=== PATIENT | male | born 1995 | race Caucasian/White ===

== ENCOUNTER 2017-10-28 19:53 | Inpatient (IN) | payer OTHER ==
[~2017-10-28] VITALS: Ht 172.7 cm; Wt 124.5 kg
[2017-10-28 23:30] VITALS: BP 127/58; PULSE 83; RESP 18
[2017-10-28 23:45] VITALS: BP 127/58; RESP 18
[2017-10-29] MEDS ORDERED: ACETAMINOPHEN 325 MG TAB PO PRN
[2017-10-29] MEDS ORDERED: ONDANSETRON 4 MG INJ IV PRN
[2017-10-29] MEDS: SOD CHLORIDE 0.9% 1,000 ML IV SCH ×4 (00:20→19:47)
[2017-10-29] MEDS: PIPER-TAZO 3.375 GM IV (PMX) 50 ML IVPB SCH ×5 (00:20→23:56)
[2017-10-29] MEDS: morphine 2 MG INJ IV PRN ×7 (00:20→23:56)
[2017-10-29 02:42] VITALS: BP 125/61; RESP 17
[2017-10-29 08:04] VITALS: BP 126/58; RESP 18
[2017-10-29 10:38] LABS: ABNORMAL IP MESSAGE 1; BASOPHILS % 0.2 % (0.0-2.0); EOSINOPHILS % 0.2 % (0.0-7.0); HEMATOCRIT 38.3 % (42.0-52.0); HEMOGLOBIN 12.7 g/dl (14.0-18.0); LYMPHOCYTES # 1.3 10^3/ul (0.8-2.9); LYMPHOCYTES % 7.8 % (15.0-51.0); MEAN CORPUSCULAR HEMOGLOBIN 28.7 pg (29.0-33.0); MEAN CORPUSCULAR HGB CONC 33.2 g/dl (32.0-37.0); MEAN CORPUSCULAR VOLUME 86.5 fl (82.0-101.0); MEAN PLATELET VOLUME 11.9 fl (7.4-10.4); MONOCYTE # 1.7 10^3/ul (0.3-0.9); MONOCYTES % 10.2 % (0.0-11.0); NEUTROPHIL # 13.2 10^3/ul (1.6-7.5); NEUTROPHILS % 80.9 % (39.0-77.0); PLATELET COUNT 210 10^3/UL (140-415); POSITIVE DIFF @See below; RED BLOOD COUNT 4.43 10^6/ul (4.70-6.10); RED CELL DISTRIBUTION WIDTH 12.9 % (11.5-14.5); WHITE BLOOD COUNT 16.4 10^3/ul (4.8-10.8)
[2017-10-29 10:47] LABS: CALCIUM 8.8 mg/dl (8.4-10.2); CREATININE 1.06 mg/dl (0.61-1.24); POTASSIUM 4.3 mmol/L (3.5-5.1)
--- NOTE | 2017-10-29 12:49 | HP ---
Date/Time of Note Date/Time of Note DATE: 10/29/17 TIME: 12:47 Assessment/Plan VTE Prophylaxis VTE Prophylaxis Intervention: other Lines/Catheters IV Catheter Type ([facility] Peripheral IV Urinary Cath still in place: No Assessment/Plan Chief Complaint/Hosp Course 1) urinary tract infection - intravenous fluids - intravenous antibiotics - pain medication - consider KUB vs repeat CT if pain continues Problems: HPI/ROS Admit Date/Time Admit Date/Time Oct 28, 2017 at 22:55 Hx of Present Illness Patient without any medical problems but does have a family history of nephrolithiasis comes in with abdominal pain. Patient was found to have an urinary tract infection and so is transferred here from an outside hospital for further treatment. PMH/Family/Social Past Medical History Medical History: no pertinent history Social History Smoking Status: Never smoker Exam/Review of Systems Vital Signs Vitals Vital Signs Date Time Temp Pulse Resp B/P Pulse Ox O2 Delivery O2 Flow Rate FiO2 10/29/17 08:04 98.6 87 18 126/58 96 10/28/17 23:30 Room Air Intake and Output 10/28/17 10/28/17 10/29/17 15:00 23:00 07:00 Intake Total 50 ml Balance 50 ml Exam Constitutional: well developed Head: atraumatic, normocephalic Respiratory: clear to auscultation Cardiovascular: regular rate and rhythm Gastrointestinal: non-tender, soft Extremities: normal pulses Labs Result Diagram: 10/29/17 1013 10/29/17 1013 Medications Medications Current Medications Sodium Chloride 1,000 ml @ 100 mls/hr Q10H IV Last administered on 10/29/17 11:31; Admin Dose 100 MLS/HR; Start 10/29/17 at 00:00 Piperacillin Sod/ Tazobactam Sod (Zosyn 3.375gm/ 50 ml (Pmx)) 50 ml @ 100 mls/ hr Q6 IVPB Last administered on 10/29/17 11:31; Admin Dose 100 MLS/HR; Start 10/29/17 at 00:00 Ondansetron HCl (Zofran Inj) 4 mg Q6H PRN IV NAUSEA AND/OR VOMITING; Start at 00:00 Acetaminophen (Tylenol Tab) 650 mg Q6H PRN PO PAIN AND OR ELEVATED TEMP; Start 10/29/17 at 00:00 Morphine Sulfate (morphine) 2 mg Q2H PRN IV SEVERE PAIN LEVEL 7-10 Last administered on 10/29/17t 11:45; Admin Dose 2 MG; Start 10/29/17 at 12:00 BLANE WELCH Oct 29, 2017 12:49
[2017-10-29 14:42] VITALS: BP 125/60; RESP 18
[2017-10-29 20:00] VITALS: BP 118/56; RESP 19
[2017-10-30 02:00] VITALS: BP 128/65; RESP 17
[2017-10-30] MEDS: morphine 2 MG INJ IV PRN ×8 (03:05→22:31)
[2017-10-30] MEDS: SOD CHLORIDE 0.9% 1,000 ML IV SCH ×2 (04:16→12:22)
[2017-10-30] MEDS: PIPER-TAZO 3.375 GM IV (PMX) 50 ML IVPB SCH ×3 (05:03→17:13)
[2017-10-30 07:48] VITALS: BP 116/53; RESP 18
[2017-10-30 11:36] LABS: BASOPHILS % 0.4 % (0.0-2.0); EOSINOPHILS # 0.1 10^3/ul (0.0-0.5); EOSINOPHILS % 0.8 % (0.0-7.0); HEMATOCRIT 40.5 % (42.0-52.0); HEMOGLOBIN 13.3 g/dl (14.0-18.0); LYMPHOCYTES # 1.5 10^3/ul (0.8-2.9); LYMPHOCYTES % 14.7 % (15.0-51.0); MEAN CORPUSCULAR HEMOGLOBIN 28.5 pg (29.0-33.0); MEAN CORPUSCULAR HGB CONC 32.8 g/dl (32.0-37.0); MEAN CORPUSCULAR VOLUME 86.7 fl (82.0-101.0); MEAN PLATELET VOLUME 11.4 fl (7.4-10.4); MONOCYTE # 1.3 10^3/ul (0.3-0.9); MONOCYTES % 12.1 % (0.0-11.0); NEUTROPHIL # 7.4 10^3/ul (1.6-7.5); NEUTROPHILS % 71.1 % (39.0-77.0); PLATELET COUNT 260 10^3/UL (140-415); RED BLOOD COUNT 4.67 10^6/ul (4.70-6.10); RED CELL DISTRIBUTION WIDTH 13.2 % (11.5-14.5); WHITE BLOOD COUNT 10.5 10^3/ul (4.8-10.8)
[2017-10-30 11:38] LABS: CALCIUM 9.2 mg/dl (8.4-10.2); CREATININE 0.97 mg/dl (0.61-1.24); POTASSIUM 3.9 mmol/L (3.5-5.1)
--- NOTE | 2017-10-30 12:17 | PN ---
Date/Time of Note Date/Time of Note DATE: 10/30/17 TIME: :17 Assessment/Plan VTE Prophylaxis VTE Prophylaxis Intervention: other Lines/Catheters IV Catheter Type (from Nrsg): Peripheral IV Urinary Cath still in place: No Assessment/Plan Chief Complaint/Hosp Course 1) urinary tract infection - intravenous fluids - intravenous antibiotics - pain medication - consider KUB vs repeat CT if pain continues Problems: Subjective 24 Hr Interval Summary Free Text/Dictation Patient still have abdominal pain but is improved Exam/Review of Systems Vital Signs Vitals Vital Signs Date Time Temp Pulse Resp B/P Pulse Ox O2 Delivery O2 Flow Rate FiO2 10/30/17 07:48 98.3 76 18 116/53 97 10/28/17 23:30 Room Air Intake and Output 10/29/17 10/29/17 10/30/17 15:00 23:00 07:00 Intake Total 1100 ml 2120 ml 2620 ml Output Total 650 ml 2350 ml 1250 ml Balance 450 ml -230 ml 1370 ml Exam Constitutional: well developed Head: atraumatic, normocephalic Neck: supple Cardiovascular: regular rate and rhythm Gastrointestinal: soft Extremities: normal pulses Results Result Diagram: 10/30/17 1053 10/30/17 1053 Results 24 hrs Laboratory Tests Test 10/30/17 10:53 White Blood Count 10.5 # Red Blood Count 4.67 L Hemoglobin 13.3 L Hematocrit 40.5 L Mean Corpuscular Volume 86.7 Mean Corpuscular Hemoglobin 28.5 L Mean Corpuscular Hemoglobin Concent 32.8 Red Cell Distribution Width 13.2 Platelet Count 260 # Mean Platelet Volume 11.4 H Neutrophils % 71.1 Lymphocytes % 14.7 L Monocytes % 12.1 H Eosinophils % 0.8 Basophils % 0.4 Nucleated Red Blood Cells % 0.0 Neutrophils # 7.4 Lymphocytes # 1.5 Monocytes # 1.3 H Eosinophils # 0.1 Basophils # 0.0 Nucleated Red Blood Cells # 0.0 Sodium Level 141 Potassium Level 3.9 Chloride Level 106 Carbon Dioxide Level 25 Anion Gap 14 Blood Urea Nitrogen 5 L Creatinine 0.97 Glucose Level 100 Calcium Level 9.2 Medications Medications Current Medications Sodium Chloride 1,000 ml @ 125 mls/hr Q8H IV Last administered on 10/30/17t 04:16; Admin Dose 125 MLS/HR; Start 10/29/17 at 00:00 Piperacillin Sod/ Tazobactam Sod (Zosyn 3.375gm/ 50 ml (Pmx)) 50 ml @ 100 mls/ hr Q6 IVPB Last administered on 10/30/17 05:03; Admin Dose 100 MLS/HR; Start 10/29/17 at 00:00 Ondansetron HCl (Zofran Inj) 4 mg Q6H PRN IV NAUSEA AND/OR VOMITING; Start at 00:00 Acetaminophen (Tylenol Tab) 650 mg Q6H PRN PO PAIN AND OR ELEVATED TEMP Last administered on 10/29/17 19:55; Admin Dose 650 MG; Start 10/29/17 at 00:00 Morphine Sulfate (morphine) 2 mg Q2H PRN IV SEVERE PAIN LEVEL 7-10 Last administered on 10/30/17 09:38; Admin Dose 2 MG; Start 10/29/17 at 12:00 BLANE WELCH Oct 30, 2017 12:17
[2017-10-30 14:08] VITALS: BP 121/59; RESP 18
--- NOTE | 2017-10-30 15:01 | RADRPT ---
PROCEDURE: XR Abdomen. CLINICAL INDICATION: Abdomen pain. TECHNIQUE: AP supine abdomen x-ray. COMPARISON: None. FINDINGS: The bowel gas pattern is normal. There is no evidence of obstruction. There are no abnormal calcifications overlying the urinary tracts. The osseus structures are unremarkable. IMPRESSION: 1. Unremarkable abdomen radiograph. RPTAT: QQ .Kenji Tracey MD, MD Date Time Electronically viewed and signed by .Kenji Tracey MD, MD on 10/30/2017 15:01 .R/
[2017-10-30 20:00] VITALS: BP 132/65; RESP 20
[2017-10-31] MEDS: SOD CHLORIDE 0.9% 1,000 ML IV SCH ×3 (00:04→18:33)
[2017-10-31 02:00] VITALS: BP 114/56; RESP 20
[2017-10-31] MEDS: morphine 2 MG INJ IV PRN ×2 (03:02→08:01)
[2017-10-31] MEDS: PIPER-TAZO 3.375 GM IV (PMX) 50 ML IVPB SCH ×3 (06:05→12:00)
[2017-10-31 07:45] VITALS: BP 132/60; RESP 16
[2017-10-31] MEDS ORDERED: HYDROmorphONE 1 MG/ML SYG IV PRN (12:00)
--- NOTE | 2017-10-31 13:53 | PN ---
Date/Time of Note Date/Time of Note DATE: 10/31/17 TIME: 13:52 Assessment/Plan VTE Prophylaxis VTE Prophylaxis Intervention: other Lines/Catheters IV Catheter Type (from Nrsg): Peripheral IV Urinary Cath still in place: No Assessment/Plan Chief Complaint/Hosp Course 1) urinary tract infection - intravenous fluids - intravenous antibiotics - pain medication - consider KUB vs repeat CT if pain continues Problems: Subjective 24 Hr Interval Summary Free Text/Dictation Abdominal pain is better Exam/Review of Systems Vital Signs Vitals Vital Signs Date Time Temp Pulse Resp B/P Pulse Ox O2 Delivery O2 Flow Rate FiO2 10/31/17 07:45 98.3 64 16 132/60 97 10/28/17 23:30 Room Air Intake and Output 10/30/17 10/30/17 10/31/17 15:00 23:00 07:00 Intake Total 300 ml 3580 ml 1763 ml Output Total 3100 ml 1350 ml Balance 300 ml 480 ml 413 ml Exam Constitutional: well developed Head: atraumatic, normocephalic Neck: supple Respiratory: clear to auscultation Cardiovascular: regular rate and rhythm Gastrointestinal: non-tender, soft Extremities: normal pulses Results Result Diagram: 10/30/17 1053 10/30/17 1053 Medications Medications Current Medications Sodium Chloride 1,000 ml @ 125 mls/hr Q8H IV Last administered on 10/31/17 10:24; Admin Dose 125 MLS/HR; Start 10/29/17 at 00:00 Piperacillin Sod/ Tazobactam Sod (Zosyn 3.375gm/ 50 ml (Pmx)) 50 ml @ 100 mls/ hr Q6 IVPB Last administered on 10/31/17 06:05; Admin Dose 100 MLS/HR; Start 10/29/17 at 00:00 Ondansetron HCl (Zofran Inj) 4 mg Q6H PRN IV NAUSEA AND/OR VOMITING; Start at 00:00 Acetaminophen (Tylenol Tab) 650 mg Q6H PRN PO PAIN AND OR ELEVATED TEMP Last administered on 10/29/17 19:55; Admin Dose 650 MG; Start 10/29/17 at 00:00 Hydromorphone HCl (Dilaudid) 1 mg Q4H PRN IV PAIN LEVEL 7-10; Start 10/31/17 at 12:00 BLANE WELCH Oct 31, 2017 13:53
[2017-10-31 14:12] VITALS: BP 102/53; RESP 16
[2017-10-31] MEDS: HYDROCODONE/APAP (5/325) TAB PO PRN ×2 (17:46→23:30)
[2017-10-31] MEDS: CEPHALEXIN 500 MG CAP PO SCH ×2 (18:59→23:30)
[2017-10-31 19:53] VITALS: BP 119/60; RESP 18
[2017-11-01] MEDS: CEPHALEXIN 500 MG CAP PO SCH ×2 (05:35→11:42)
[2017-11-01] MEDS: HYDROCODONE/APAP (5/325) TAB PO PRN ×2 (05:36→11:42)
[2017-11-01 08:12] VITALS: BP 118/60; RESP 20
[2017-11-01] MEDS ORDERED: DIPHENHYDRAMINE 25 MG CAP PO PRN (11:00)
[2017-11-01] MEDS ORDERED: HYDR-3498 PO (13:07)
[2017-11-01] MEDS ORDERED: CEPH500C PO (13:07)
--- NOTE | 2017-11-01 13:14 | DS ---
Date/Time of Note Date/Time of Note DATE: 11/01/17 TIME: 13:12 Discharge Summary Admission/Discharge Info Admit Date/Time Oct 28, 2017 at 22:55 Discharge Date/Time 11/01/17 Patient Condition: Fair Consults none Procedures none Hx of Present Illness Patient without any medical problems but does have a family history of nephrolithiasis comes in with abdominal pain. Patient was found to have an urinary tract infection and so is transferred here from an outside hospital for further treatment. Hospital Course Patient was treated with intravenous fluids and antibiotics. He was also given pain medication. He clinically improved and by the time of discharge, his pain was greatly diminished. There was no evidence of nephrolithiasis though it may have passed prior to admission. Patient will be sent home to finish his course of antibiotics and pain medications. 1) urinary tract infection - intravenous fluids - intravenous antibiotics - pain medication - consider KUB vs repeat CT if pain continues Home Meds Active Scripts Cephalexin* (Cephalexin*) 500 Mg Capsule, 500 MG PO Q6 for 10 Days, #30 CAP Prov:BLANE WELCH 11/01/17 Hydrocodone Bit-Acetaminophen (Hydrocodone Bit-APAP) 5-325MG Tablet, 1 TAB PO Q6H Y for PAIN LEVEL 4-7 for 10 Days, #30 TAB Prov:BLANE WELCH 11/01/17 Primary Care Provider Not On Staff Doctor BLANE WELCH Nov 01, 2017 13:14
[2017-11-01 14:00] VITALS: BP 120/62; RESP 18
== END 2017-11-01 15:15 | disposition home or self-care (01) | DRG 690 ==
LOC: PP2 22:55
PROVIDERS: ADMIT Internal Medicine; ATTEND Internal Medicine
DX: N39.0 Urinary tract infection, site not specified (principal)
CPT/HCPCS: 74000; 80048; 85025; J2270; J2543; J7030